=== PATIENT | male | born 1975 | race Two or more races ===

== ENCOUNTER → 2017-05-28 | Outpatient (CLI) | payer BC | END | disposition home or self-care (01) | LOC: HKI 08:37 | DX: M25.551 Pain in right hip (principal); I10 Essential (primary) hypertension; R20.0 Anesthesia of skin; R26.9 Unspecified abnormalities of gait and mobility | CPT/HCPCS: 20610 ==

== ENCOUNTER → 2017-06-02 | Outpatient (CLI) | payer BC | END | disposition home or self-care (01) | LOC: HKI 09:08 | DX: M16.11 Unilateral primary osteoarthritis, right hip (principal); M25.551 Pain in right hip; I10 Essential (primary) hypertension; R26.9 Unspecified abnormalities of gait and mobility; R20.0 Anesthesia of skin; Z96.641 Presence of right artificial hip joint | CPT/HCPCS: 20610 ==